=== PATIENT | female | born 1985 | race Hispanic/Latino ===

== ENCOUNTER 2020-06-09 05:15 | Inpatient (IN) | payer BC ==
[~2020-06-09 05:15] MED LIST: Acetaminophen 500 MG TAB PO PRN; Butorphanol Tartrate 1 MG/ML VIAL SLOW IVP PRN; Lidocaine 1% (PF) 30 ML VIAL SC PRN; NS / Oxytocin 40 units/1000ml 1,000 ML IV PRN; Ondansetron PF 4 MG/2 ML Vial IVP PRN; Promethazine HCl 25 MG/ML VIAL IM PRN; hydrALAZINE 20 MG/ML VIAL SLOW IVP PRN
[2020-06-09] MEDS ORDERED: NS w/ Oxytocin 30 units 500 ML ONE ×2 (05:34→14:11)
[2020-06-09 05:54] VITALS: BMI 33.8
[2020-06-09 06:34] LABS: Hemoglobin 10.5 g/dL (12.0-15.5); Mean Corpuscular HGB CONC 32.4 g/dL (32.0-36.0); Mean Corpuscular Hemoglobin 26.9 pg (27.0-33.0); Mean Corpuscular Volume 82.9 fl (81.6-98.3); Mean Platelet Volume 12.3 fl (7.4-10.4); Platelet Count 241 10x3/uL (150-450); RBC Distribution Width 13.6 % (11.5-14.5); Red Blood Cell (RBC) Count 3.91 10x6/uL (3.90-5.03); White Blood Cell (WBC) Count 7.5 10x3/uL (3.5-10.5)
[2020-06-09 07:12] LABS: Hep B Surf Ag Non-Reactive S/CO (NonReactive)
[2020-06-09 07:13] LABS: Syphilis Antibody Nonreactive (Nonreactive); Syphilis Antibody Index 0.03 S/CO (<1.00 Non-Reactive)
[2020-06-09 07:17] LABS: HBSAg Index 0.19 S/CO (0-0.99)
[2020-06-09] MEDS ORDERED: Fentanyl 4 mcg/Bup 0.1% Cadd 100 ML ONE (08:09)
[2020-06-09 08:43] LABS: ALT (SGPT) 13 U/L (8-55); AST (SGOT) 14 U/L (5-34); Alkaline Phosphatase 166 U/L (40-110); Anion Gap 11 mmol/L (10-20); BUN (Urea Nitrogen) 8 mg/dL (7.0-18.7); Bilirubin, Total 0.3 mg/dL (0.2-1.2); Calc. Creatinine Clearance 169 mL/min (70-130); Calcium 8.5 mg/dL (7.8-10.44); Carbon Dioxide 22 mmol/L (22-29); Chloride 108 mmol/L (98-107); Globulin 3.2 g/dL (2.4-3.5); Glucose 70 mg/dL (70-105); Potassium 3.6 mmol/L (3.5-5.1); Protein, Total 6.2 g/dL (6.0-8.3); Sodium 137 mmol/L (136-145)
[2020-06-09] MEDS ORDERED: ePHEDrine 50 MG/ML VIAL SLOW IVP PRN ×3 (09:34→09:43)
[2020-06-09] MEDS ORDERED: diphenhydrAMINE 50 MG/ML VIAL IVP PRN ×3 (09:34→09:43)
[2020-06-09] MEDS ORDERED: Ondansetron PF 4 MG/2 ML Vial IVP PRN ×5 (09:34→16:54)
[2020-06-09] MEDS ORDERED: Naloxone HCl 0.4 mg/ml Vial IVP PRN ×6 (09:34→09:43)
[2020-06-09] MEDS ORDERED: Promethazine HCl 25 MG/ML VIAL IM PRN ×4 (09:34→16:54)
[2020-06-09] MEDS ORDERED: Acetaminophen 325 MG TAB PO PRN ×3 (09:34→09:43)
[2020-06-09] MEDS ORDERED: Lactated Ringer's 500 ML IV PRN ×3 (09:34→09:43)
[2020-06-09] MEDS ORDERED: Fentanyl 4 mcg/Bupivacaine 0.1% Cassette 100 ML EPIDURAL SCH ×2 (09:45)
[2020-06-09] MEDS ORDERED: Fentanyl 4 mcg/Bupivacaine 0.1% Cassette 100 ML FS SCH (09:45)
[2020-06-09] MEDS ORDERED: Communication Order-Pharmacy FS SCH ×3 (09:45)
[2020-06-09] MEDS ORDERED: diphenhydrAMINE 25 MG CAP PO PRN (16:54)
[2020-06-09] MEDS ORDERED: Lanolin Ointment 7 GM TUBE TOP PRN (16:54)
[2020-06-09] MEDS ORDERED: HYDROcodone/Acetaminophen 5/325 mg Tablet PO PRN ×4 (16:54)
[2020-06-09] MEDS ORDERED: Ibuprofen 800 MG TAB PO PRN (16:54)
[2020-06-09] MEDS ORDERED: Milk Of Magnesia 30 ML UDCUP PO PRN (16:54)
[2020-06-09] MEDS ORDERED: hydrALAZINE 20 MG/ML VIAL SLOW IVP PRN ×2 (16:54)
[2020-06-09] MEDS ORDERED: Lidocaine 1% (PF) 30 ML VIAL SC PRN (16:54)
[2020-06-09] MEDS ORDERED: Butorphanol Tartrate 1 MG/ML VIAL SLOW IVP PRN (16:54)
[2020-06-09] MEDS ORDERED: Bisacodyl 10 MG SUPP PR PRN (16:54)
[2020-06-09] MEDS ORDERED: Preparation H Ointment 28 GM TUBE PR PRN (16:54)
[2020-06-09] MEDS ORDERED: Adacel (T-DAP) 0.5 ML SYRINGE IM ONE (16:54)
[2020-06-09] MEDS ORDERED: NS w/ Oxytocin 30 units 500 ML IV PRN (17:18)
[2020-06-09] MEDS ORDERED: NS w/ Oxytocin 30 units 500 ML IVPB SCH ×2 (17:30)
[2020-06-09] MEDS ORDERED: NS w/ Oxytocin 30 units 500 ML IV SCH (17:30)
[2020-06-09] MEDS: Lactated Ringer's 1,000 ML IV SCH (17:39)
[2020-06-09] MEDS: Docusate Calcium (SURFAK) 240 MG CAP PO SCH (21:27)
[2020-06-10] MEDS: Ibuprofen 800 MG TAB PO SCH ×4 (00:11→20:53)
[2020-06-10] MEDS: Ferrous Sulfate 325 MG TAB PO SCH ×3 (00:34→21:24)
[2020-06-10] MEDS: Lactated Ringer's 1,000 ML IV SCH ×3 (07:37→19:29)
[2020-06-10] MEDS: Docusate Calcium (SURFAK) 240 MG CAP PO SCH ×2 (09:37→20:52)
[2020-06-10] MEDS: Prenatal Vitamin 1 TAB PO SCH (09:41)
[2020-06-11] MEDS: Lactated Ringer's 1,000 ML IV SCH ×2 (04:49→08:26)
[2020-06-11] MEDS: Ibuprofen 800 MG TAB PO SCH (04:51)
[2020-06-11 08:02] VITALS: BP 134/84; TEMP 98.2
[2020-06-11] MEDS: Ferrous Sulfate 325 MG TAB PO SCH (08:26)
[2020-06-11] MEDS: Prenatal Vitamin 1 TAB PO SCH (08:49)
[2020-06-11] MEDS: Docusate Calcium (SURFAK) 240 MG CAP PO SCH (08:49)
== END 2020-06-11 13:42 | disposition home or self-care (01) | DRG 807 ==
LOC: CSHLD 05:15 → UNDOADMIN 05:15 → CSHLD 09:38 → CSHPP 19:38
PROVIDERS: ADMIT Obstetrics & Gynecology; ATTEND Obstetrics & Gynecology
PROC: 10E0XZZ Delivery of Products of Conception, External Approach (ICD-10-PCS; principal; 2020-06-09)
PROC: 0KQM0ZZ Repair Perineum Muscle, Open Approach (ICD-10-PCS; 2020-06-09)
PROC: 3E033VJ Introduction of Other Hormone into Peripheral Vein, Percutaneous Approach (ICD-10-PCS; 2020-06-09)
DX: O24.429 Gestational diabetes mellitus in childbirth, unspecified control (principal); Z37.0 Single live birth; Z3A.39 39 weeks gestation of pregnancy; Z20.822 Contact with and (suspected) exposure to COVID-19; O70.1 Second degree perineal laceration during delivery
CPT/HCPCS: 36415; 51702; 80053; 82570; 84156; 85027; 86780; 86850; 86900; 86901; 87340; J0360; J0595; J2590; J7030

== ENCOUNTER 2022-07-15 02:46 | Observation (INO) | payer BC ==
[2022-07-15] MEDS ORDERED: Ketorolac Tromethamine 30 MG/ML VIAL ONE (03:29)
[2022-07-15] MEDS ORDERED: Ondansetron PF 4 MG/2 ML Vial ONE ×2 (03:30→11:01)
[2022-07-15 03:40] LABS: #Eosinphils 0.1 10x3/uL (0.0-0.5); #Monocytes 0.5 10x3/uL (0.0-1.1); #Neutrophils 4.2 10x3/uL (1.5-8.4); %Basophils 0.5 % (0.0-2.0); %Eosinophils 1.5 % (0.0-6.0); %Lymphocytes 21.6 % (18.0-47.0); %Monocytes 7.8 % (0.0-10.0); %Neutrophils 68.3 % (40.0-75.0); Mean Corpuscular HGB CONC 33.4 g/dL (32.0-36.0); Mean Corpuscular Hemoglobin 28.2 pg (27.0-33.0); Mean Corpuscular Volume 84.5 fl (81.6-98.3); Mean Platelet Volume 11.1 fl (7.4-10.4); Platelet Count 270 10x3/uL (150-450); RBC Distribution Width 13.8 % (11.5-14.5); Red Blood Cell (RBC) Count 4.96 10x6/uL (3.90-5.03); White Blood Cell (WBC) Count 6.2 10x3/uL (3.5-10.5)
[2022-07-15 03:46] LABS: Bilirubin 1+ (Negative); Blood, Urine 10 (Negative); Clarity Slightly Cloudy (Clear); Glucose, Urine (Dipstick) Normal (Negative); Ketone, Urine 5 mg/dL (Negative); Leukocyte 25 (Negative); Nitrite Negative (Negative); Protein, Urine (Dipstick) 15 mg/dl (Neg-Trace); Specific Gravity, Urine 1.025 (1.005-1.030)
[2022-07-15 03:58] LABS: ALT (SGPT) 162 U/L (8-55); AST (SGOT) 222 U/L (5-34); Albumin 4.3 g/dL (3.5-5.0); Alkaline Phosphatase 95 U/L (40-110); Anion Gap 15 mmol/L (10-20); BUN (Urea Nitrogen) 7 mg/dL (7.0-18.7); Bilirubin, Total 1.4 mg/dL (0.2-1.2); Calc. Creatinine Clearance 0 mL/min (70-130); Carbon Dioxide 23 mmol/L (22-29); Chloride 102 mmol/L (98-107); Estimated GFR 113; Globulin 3.9 g/dL (2.4-3.5); Glucose 140 mg/dL (70-105); Lipase 33 U/L (8-78); Potassium 3.7 mmol/L (3.5-5.1); Protein, Total 8.2 g/dL (6.0-8.3); Sodium 136 mmol/L (136-145)
[2022-07-15 04:01] LABS: BHCG - Serum Negative (NEGATIVE); Pregs Control Background? CLEAR/WHITE (CLR/WHITE); Pregs Control Bar Appear? YES (CONTROL BAR)
[2022-07-15 04:27] LABS: Mucous/LPF 2+ LPF (<2+); RBC/HPF 0-3 HPF (0-3)
[2022-07-15 04:28] LABS: Bacteria/HPF 1+ HPF (None Seen)
[2022-07-15] MEDS ORDERED: Piperacillin/Tazobactam 4.5 GM VIAL ONE (04:36)
[2022-07-15] MEDS ORDERED: HYDROcodone/Acetaminophen 10/325 mg Tablet PO PRN (10:53)
[2022-07-15] MEDS ORDERED: Mag-Al 1200 mg/1200 mg/30 ML UDCUP PO PRN (10:53)
[2022-07-15] MEDS ORDERED: Calcium Carbonate 500 MG ChewTAB PO PRN (10:53)
[2022-07-15] MEDS ORDERED: Promethazine HCl 25 MG/ML VIAL IM PRN (10:53)
[2022-07-15] MEDS ORDERED: Dextrose 5% in Water 1,000 ML IV PRN (10:53)
[2022-07-15] MEDS ORDERED: Morphine 2 MG/ML VIAL SLOW IVP PRN (10:53)
[2022-07-15] MEDS ORDERED: Ipratropium/Albuterol 3 ML NEB NEB PRN (10:53)
[2022-07-15] MEDS ORDERED: hydrALAZINE 20 MG/ML VIAL SLOW IVP PRN (10:53)
[2022-07-15] MEDS ORDERED: Ondansetron PF 4 MG/2 ML Vial IVP PRN (10:53)
[2022-07-15] MEDS ORDERED: Dextrose 50% Abboject 50 ML SYRINGE SLOW IVP PRN (10:53)
[2022-07-15] MEDS ORDERED: Iopamidol 30 ML ONE (10:54)
[2022-07-15] MEDS ORDERED: Bupivacaine HCl 0.5%/Epinephrine 1:200,000/PF 30 ml Vial ONE (10:54)
[2022-07-15] MEDS ORDERED: PROPOFOL 20 ML ONE (10:58)
[2022-07-15] MEDS ORDERED: Fentanyl 100 MCG/2 ML VIAL ONE ×2 (10:58→12:59)
[2022-07-15] MEDS ORDERED: Midazolam HCl 2 mg/2 ml Vial ONE (10:59)
[2022-07-15] MEDS ORDERED: D5 1/2 NS w/20 mEq KCL 1,000 ML IV SCH (11:00)
[2022-07-15] MEDS ORDERED: Dexamethasone 20 MG/5 ML VIAL ONE (11:01)
[2022-07-15] MEDS ORDERED: Rocuronium Bromide 10 MG/ML (10ML VIAL) ONE (11:01)
[2022-07-15] MEDS ORDERED: Lidocaine 1% PF 5 ML VIAL ONE (11:01)
[2022-07-15 12:00] VITALS: BMI 30.3
[2022-07-15] MEDS ORDERED: Ketorolac Tromethamine 30 MG/ML VIAL IVP SCH (12:00)
[2022-07-15] MEDS ORDERED: Glycopyrrolate 0.2 MG/ML 5 ML SYRINGE ONE (12:31)
[2022-07-15 17:02] VITALS: BP 120/71; TEMP 97.3
== END 2022-07-15 19:27 | disposition home or self-care (01) ==
LOC: CSHERS 02:46 → CSHTELE 07:37
PROVIDERS: ADMIT Surgery; ATTEND Surgery
PROC: 0FT44ZZ Resection of Gallbladder, Percutaneous Endoscopic Approach (ICD-10-PCS; principal; 2022-07-15)
PROC: BF03YZZ Plain Radiography of Gallbladder and Bile Ducts using Other Contrast (ICD-10-PCS; 2022-07-15)
DX: K81.2 Acute cholecystitis with chronic cholecystitis (principal); K82.8 Other specified diseases of gallbladder; Z79.899 Other long term (current) drug therapy
CPT/HCPCS: 47532; 76705; 80053; 81003; 81015; 83690; 84703; 85025; 88304; C1889; J1100; J1885; J2250; J2405; J2543; J2704; J3010; Q9967